=== PATIENT | male | born 1995 | race Caucasian/White ===

== ENCOUNTER 2017-08-09 12:03 | Emergency (ER) | payer MEDICAID, OTHER ==
[~2017-08-09] VITALS: Wt 125.1 kg
[~2017-08-09 12:03] MED LIST: DENIES
--- NOTE | 2017-08-09 14:28 | ERD ---
ER Documentation Chief Complaint Chief Complaint BACK PAIN, SHOULDER PAIN, ONSET TODAY HPI 22y/o male previously healthy presents to the ED c/o acute onset of lower back pain to days ago, worse on the left side. Pain is sharp, 8/10, worsened by lateral rotation and bending forward. Treatment attempted: None at this time. The patient lifts heavy objects at work. No recent history of direct trauma. Denies limb weakness, numbness or incontinence. No urinary symptoms. No fever, no chills no rashes ROS SYSTEMIC symptoms: no fever, chills, no night sweats, no weight loss EYE symptoms: No blurred vision, no eye discharge OTOLARYNGEAL symptoms: No hearing loss. No ear pain, no sore throat CARDIOVASCULAR symptoms: No chest pain or discomfort, no palpitations. PULMONARY symptoms: No dyspnea, no cough, no wheezing. GASTROINTESTINAL symptoms: No abdominal pain, no nausea, no vomiting, no diarrhea NEUROLOGY symptoms: No confusion, no syncope, no numbness or tingling. SKIN no rashes All systems reviewed and are negative except as per history of present illness. Medications Home Meds Active Scripts Baclofen* (Baclofen*) 10 Mg Tablet, 10 MG PO Q8 for 5 Days, #15 TAB Prov:FLORENCIO ROSALES MD 08/09/17 Hydrocodone/Acetaminophen ([place] 5-325 Tablet) 1 Each Tablet, 1 TAB PO Q6H Y for PAIN, #12 TAB Prov:FLORENCIO ROSALES MD 08/09/17 Ibuprofen* (Motrin*) 600 Mg Tab, 600 MG PO Q8, #30 TAB Prov:FLORENCIO ROSALES MD 08/09/17 Reported Medications [Denies] No Conflict Check 07/20/11 Allergies Allergies: Coded Allergies: No Known Allergies (Verified Allergy, Mild, 07/20/11) PMhx/Soc History of Surgery: Yes (APPY KNEE) Anesthesia Reaction: No Hx Neurological Disorder: No Hx Respiratory Disorders: No Hx Cardiac Disorders: No Hx Psychiatric Problems: No Hx Miscellaneous Medical Probl: No Hx Alcohol Use: No Hx Substance Use: No Hx Tobacco Use: No Physical Exam Vitals Vital Signs Date Time Temp Pulse Resp B/P Pulse Ox O2 Delivery O2 Flow Rate FiO2 08/09/17 12:08 98.4 70 18 122/78 99 Physical Exam Patient is in no acute distress, vital signs stable. Alert and fully oriented. EYES: PERRLA, EOMI, Sclera and conjunctiva appear normal. EARS: Canals clear, tympanic membranes WNL THROAT: Normal oropharynx. NECK: Supple, No lymphadenopathy. Full ROM without pain or tenderness. HEART: RRR, no rubs, murmurs, clicks or gallops. LUNGS: Clear to auscultation. ABDOMEN: Soft, non-tender without masses or hepatosplenomegaly. EXTREMITIES: No edema bilaterally. MUSC: Normal inspection, decreased range of motion to lateral rotation no vertebral tenderness muscle spasm Procedures/MDM 22-year-old male, previously healthy, presents to the emergency department complaining of low back pain: no red flags. Differential diagnosis: lumbar sprain/strain, sciatica, herniated disk, UTI less likely pyelo, kidney stone. Neurovascular exam grossly intact. no clinical findings suggestive of acute infectious process, no acute deformity, no edema, no rashes. Most likely muscle spasm. The patient will be DC home with a Rx for Ibuprofen and [place] prn severe pain. The patient was instructed to follow up with PCP in 2-4 days, if the doctor is unavailable and the symptoms persist or worsen, the patient should return to the hospital immediately. Departure Diagnosis: Primary Impression: Acute back pain Additional Impression: Spasm of back muscles Condition: Stable Additional Instructions: Thank you very much for allowing us to participate in your care. Your health and safety is our top priority at [facility]. Have prescriptions filled and follow precisely the directions on the label. Follow-up with primary care provider during the next 4 days and bring all the information and medications prescribed. If illness has not improved in 2 days, then make an appointment with primary care provider. If the provider is unavailable, return to the Emergency Department immediately. FLORENCIO ROSALES MD Aug 09, 2017 14:28
[2017-08-09] MEDS ORDERED: BACL10TA PO (15:24)
[2017-08-09] MEDS ORDERED: IBUP-1542 PO (15:24)
[2017-08-09] MEDS ORDERED: HYDR-906 PO (15:24)
[2017-08-09 15:36] VITALS: BP 117/63; PULSE 71; RESP 19
== END 2017-08-09 15:37 | disposition home or self-care (01) ==
LOC: FTE 12:03
DX: M54.5 Low back pain (principal); M62.830 Muscle spasm of back
CPT/HCPCS: 99284